=== PATIENT | female | born 2000 | race Caucasian/White ===

== ENCOUNTER 2023-03-07 11:10 | Emergency (ER) | payer OTHER ==
[~2023-03-07] VITALS: Ht 177.8 cm; Wt 58.1 kg
[2023-03-07] MEDS ORDERED: METH-815 PO (12:31)
[2023-03-07] MEDS ORDERED: predniSONE 50 MG TABLET PO ONE (13:45)
[2023-03-07] MEDS ORDERED: CLINDAMYCIN HCL 150 MG CAPSULE PO ONE (13:45)
[2023-03-07] MEDS ORDERED: CLIN300C12 PO (13:51)
[2023-03-07] MEDS ORDERED: predniSONE 50 MG TABLET ONE (13:56)
[2023-03-07] MEDS ORDERED: CLINDAMYCIN HCL 300 MG CAPSULE ONE (13:56)
[2023-03-07 14:08] VITALS: BP 100/59; TEMP 98.8; O2SAT 98
== END 2023-03-07 14:09 | disposition home or self-care (01) ==
LOC: ER 11:10
DX: L03.211 Cellulitis of face (principal); Z79.2 Long term (current) use of antibiotics; Z79.899 Other long term (current) drug therapy
CPT/HCPCS: 99283; J7512; A4663